=== PATIENT | female | born 1950 | race Caucasian/White ===

== ENCOUNTER 2020-01-07 05:41 | Day surgery (SDC) | payer MEDICARE, OTHER ==
--- NOTE | 2019-12-24 13:28 | HP ---
CC: Dr. Medrano * PREOPERATIVE HISTORY AND PHYSICAL: DATE OF ADMISSION/SURGERY: 01/07/20 DATE OF PREOPERATIVE HISTORY AND PHYSICAL: 12/24/19 This patient is scheduled for same-day surgery admission by Dr. Mix on Sunday , 01/07/20. ATTENDING SURGEON: Dr. Deni Mix * (dictated by Jessica Lane NP) CHIEF COMPLAINT: Anal lesion. HISTORY OF PRESENT ILLNESS: The patient is a 69-year-old female who presented to [facility] self-referred for lesions on her buttock and anus. She has history of similar lesions in 2016, biopsied and consistent with AIN-3. Dr. Mix examined the patient and did a biopsy of one of the lesions and the pathology was consistent again with AIN-3. Dr. Mix discussed options of referral to a specialist for this purpose in [place] or [place], but the patient states she is unable to make the trips. For this reason, Dr. Mix discussed the alternative of anal exam under anesthesia with excision of the lesions and further followup with the pathology. Dr. Mix described the nature of the surgical procedure, the rationale for the procedure, the relevant risks and benefits and today I reviewed the typical postoperative care and recovery. The patient has had a chance to ask questions and stated that she understands the information and is satisfied with the answers given to her questions. She will sign surgical consent on the day of surgery. PAST MEDICAL HISTORY: Significant for bipolar disorder, chronic neck pain, panic disorder. She is followed for primary care by Dr. Medrano who has cleared her to proceed with the recommended surgery. PAST SURGICAL HISTORY: Resection of cerebellar meningioma [address] Cotto; breast reduction in 1999; total hysterectomy secondary to PID. MEDICATIONS: 1. Lamotrigine 25 mg p.o. t.i.d. 2. Triamterene/hydrochlorothiazide 37.5/25 mg 2 tablets daily. 3. Clonazepam 0.5 mg take one half to one tablet t.i.d., p.r.n. anxiety and sleep. 4. Quetiapine 25 mg 2 tabs daily. 5. Estradiol 1 mg p.o. daily. 6. Meclizine 25 mg 1 tablet t.i.d. p.r.n. vertigo. 7. Morphine sulfate 15 mg 1 tablet b.i.d. 8. Oxycodone 10 mg 1 tablet 4 times a day. ALLERGIES: Unspecified antibiotic many years ago caused itching; HYDROCODONE causes GI upset; FLUCONAZOLE caused some type of unspecified reaction and FLUOXETINE caused nausea. FAMILY HISTORY: Father with history of peritonitis. He when the patient was 5-year-old. Mother with a history of metastatic breast cancer diagnosed in her early 50s. No known anesthesia complications, bleeding tendencies, or clotting disorders in the family. SOCIAL HISTORY: She is and her accompanied her to the visit today and was very supportive. She is a nonsmoker, occasionally drinks alcohol and is a former drug user, but denies ever using IV drugs. REVIEW OF SYSTEMS: Constitutional: No fevers, chills, excessive fatigue, or weight loss. General: No previous anesthesia complications, no bleeding tendencies or blood transfusions. No history of deep vein thrombosis or pulmonary embolism. EENMT: No significant visual difficulties or hearing problems. No sore throat, no sinus drainage. Endocrine: No diabetes or thyroid disease. Respiratory: No dyspnea on exertion. No chronic cough. Cardiovascular: No anginal chest pain, palpitations, or chest pressure. Gastrointestinal: No nausea, vomiting, diarrhea, GI bleeding; she does suffer from constipation due to being on chronic opioids. Genitourinary: No dysuria. Musculoskeletal: Chronic neck pain status post cerebellar meningioma resection. Integumentary: No chronic rashes or skin changes. Neurologic: No headache or blurred vision. She does suffer from vertigo. Psychiatric: No insomnia reported. She does have a history of bipolar disorder and panic disorder, but today was very calm and cooperative. PHYSICAL EXAMINATION GENERAL SURVEY: The patient is a 69-year-old female, well developed, well nourished, in no acute distress. VITAL SIGNS: Height 66 inches, weight 205 pounds, body mass index 33.1. Blood pressure 148/90, pulse 76 and regular, respiratory rate 18, temperature 98.8 tympanic. HEENT: Benign. NECK: No cervical lymphadenopathy. BACK: No CVA tenderness. LUNGS: Breath sounds bilaterally clear and equal. HEART: Regular rate and rhythm. No murmurs or rubs appreciated. ABDOMEN: Active bowel sounds, soft, nondistended, nontender throughout. No obvious masses, organomegaly, or evidence of ventral hernia. PELVIC: Deferred. Anal exam done by Dr. Mix. Focused examination of the anal area revealed a 2 x 3 cm wart-like structure that is flat and intact. No drainage. Nontender. There are also hyperpigmented lesions in the perineum. EXTREMITIES: Warm without edema or skin ulceration. NEUROLOGIC: Alert and oriented x3. Steady gait. SKIN: Warm, dry, and intact. 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 PLAN: Same-day surgery admission to Dr. Mix's service on 01/07/20 for anal exam under anesthesia and excision of Campa's disease. JESSICA LANE, NURSES DIRECTOR [id number]/[facility] #: [id number] JIGNESH
[~2020-01-07 05:41] MED LIST: Buffered Lidocaine 1% SYRIN* 1 ML/SYRINGE INTRADERM ONE
[2020-01-07] MEDS ORDERED: Famotidine IV* 10 MG/ML 2 ML (20 mg) IV ONE (06:00)
[2020-01-07] MEDS ORDERED: Lactated Ringers 1000 ML Bag* 1,000 ML IV SCH (06:00)
[2020-01-07] MEDS ORDERED: Buffered Lidocaine 1% SYRIN* 1 ML/SYRINGE INTRADERM ONE (06:20)
[2020-01-07] MEDS ORDERED: Famotidine IV* 10 MG/ML 2 ML (20 mg) ONE (06:21)
[2020-01-07] MEDS ORDERED: ceFOXitin 2 GM IVPREMIX* 2 GM/50 ML BAG ONE (06:21)
[2020-01-07] MEDS ORDERED: Succinylcholine* 20 MG/ML 10 ML VIAL ONE (07:09)
[2020-01-07] MEDS ORDERED: Dexamethasone IV* 4 MG/ML 1 ML (4 MG) ONE (07:09)
[2020-01-07] MEDS ORDERED: fentaNYL* 50 MCG/ML 2 ML VIAL (100 MCG VIAL) ONE (07:09)
[2020-01-07] MEDS ORDERED: Midazolam* 1 MG/ML 5 ML VIAL (5 MG) ONE ×2 (07:09→07:39)
[2020-01-07] MEDS ORDERED: Propofol* 10 MG/ML 20 ML BTL ONE ×2 (07:09→07:56)
[2020-01-07] MEDS ORDERED: Lidocaine 2% PF * 5 ML VIAL ONE (07:09)
[2020-01-07] MEDS ORDERED: Ondansetron INJ* 2 MG/ML VIAL ONE (07:09)
[2020-01-07] MEDS ORDERED: Bupivacaine 0.5% W/EPI SDV* 30 ML VIAL ONE (07:28)
[2020-01-07] MEDS ORDERED: Gelfoam Sponge SIZE 100* SPONGE ONE (07:29)
[2020-01-07] MEDS ORDERED: Bupivacaine 0.25% SDV* 30 ML ONE (07:29)
[2020-01-07] MEDS ORDERED: KETAMINE HCL* 50 MG/ML 10 ML VIAL ONE (07:39)
[2020-01-07] MEDS ORDERED: Ketorolac INJ* 30 MG/ML 1 ML VIAL ONE (07:54)
[2020-01-07] MEDS ORDERED: Bupivacaine 0.25% EPI 200,000* 30 ML SDV ONE (07:55)
[2020-01-07] MEDS ORDERED: Naloxone* 0.4 MG/ML 1 ML VIAL IV PRN (08:10)
[2020-01-07] MEDS ORDERED: fentaNYL* 50 MCG/ML 2 ML VIAL (100 MCG VIAL) IV PRN (08:10)
[2020-01-07] MEDS ORDERED: Ondansetron INJ* 2 MG/ML VIAL IV PRN (08:10)
--- NOTE | 2020-01-07 08:36 | OP ---
Operative Report - Blank - Operative Report Date of Operation: 01/07/20 Note: Pre-OP Diagnoses: AIN-3 Post-op Diagnosis: same Procedure: exam under anesthesia, excision of L perianal lesion, biopsy of R buttock lesion Surgeon: Dominguez Asst: none Anethesia: local MAC Dr Maza EBL: minimal IVF: minimal Specimen: 1. L perianal lesion 2. R buttock lesion Drains: none Complications: None
[2020-01-07 09:26] VITALS: BP 150/89
--- NOTE | 2020-01-07 22:39 | OP ---
CC: Primary care doctor; [facility].* DATE OF OPERATION: 01/07/20 - SDS DATE OF : 50 SURGEON: Manish Mix MD. CASTING MACHINE ADJUSTER: None. ANESTHESIOLOGIST: Dr. Maza. ANESTHESIA: Local MAC. PRE-OP DIAGNOSIS: Anal intraepithelial neoplasm class III. POST-OP DIAGNOSIS: Anal intraepithelial neoplasm class III. OPERATIVE PROCEDURE: Exam under anesthesia, excisional biopsy of left perianal lesion, and punch biopsy of a right buttock lesion. ESTIMATED BLOOD LOSS: Minimal. FLUIDS: Minimal crystalloid fluid given. SPECIMENS: 1. Left perianal lesion. 2. Right buttock lesion. DESCRIPTION OF PROCEDURE: The patient identified in the preoperative area. I discussed the case with her and her and the consent was signed. She was taken to the operating room and placed on the operating room table in the supine position. General anesthesia was given, preoperative antibiotics were given. Sequential devices were placed on bilateral lower extremities. The patient was placed in stirrups and the perianal area was addressed again. There was the known 1.5 x 1.5 lesion in the left perianal area, and the patient was prepped and draped in standard surgical fashion and a time-out was performed. Exam in the anus, there was no evidence of additional lesions that were obvious. Digital rectal exam unremarkable. After injection of lidocaine along the proposed excision site, I made an elliptical incision around the lesion, again measured 1.5 x 1.5 cm. Once this was removed, we marked the lesion placing a short suture at the superior aspect of what we were visualizing which indeed was anterior and a long suture on the lateral aspect. This was sent down for pathology. The defect was measured about 4 cm by just over 1.5 cm. A flap was made laterally, hemostasis achieved , and I reapproximated skin with interrupted 3-0 nylon sutures in a mattress fashion. A second scalpel was used to do a punch biopsy on a stuck-on right buttock lesion that was pigmented and dissimilar from the initial lesion. This biopsy was taken and passed off as specimen, and cautery was used for hemostasis at this site. Xeroform followed by gauze was applied to the excision biopsy site and the patient was woken up and transferred to the PACU in stable condition. [id number]/[facility] #: [id number] [facility]
== END 2020-01-07 09:20 | disposition home or self-care (01) ==
LOC: OR 05:41
PROVIDERS: ATTEND Surgery
DX: D01.3 Carcinoma in situ of anus and anal canal (principal); C20 Malignant neoplasm of rectum; L82.0 Inflamed seborrheic keratosis; F31.81 Bipolar II disorder; M54.2 Cervicalgia; F41.1 Generalized anxiety disorder; R60.0 Localized edema; E78.5 Hyperlipidemia, unspecified; L40.9 Psoriasis, unspecified; F41.0 Panic disorder [episodic paroxysmal anxiety]; Z87.891 Personal history of nicotine dependence; Z88.5 Allergy status to narcotic agent; Z88.8 Allergy status to other drugs, medicaments and biological substances
CPT/HCPCS: 88305; J0330; J0694; J1100; J1885; J2250; J2405; J2704; J3010; J3490

== ENCOUNTER 2024-09-29 10:24 | Inpatient (IN) ==
[2024-09-29 12:41] LABS: ABS Basophils 0.1 10^3/uL (0.0-0.1); ABS Lymphocytes 1.7 10^3/uL (1.0-4.8); ABS Monocytes 1.5 10^3/uL (0.0-0.9); ABS Neutrophils 10.9 10^3/uL (1.5-7.6); ABS Nucleated RBC 0.01 10^3/ul; Eosinophil % 0.3 %; Hematocrit 45.2 % (35-45); Hemoglobin 15.9 g/dL (11.5-14.3); Lymphocyte % 11.8 %; Mean Corpuscular Hemoglobin 30.8 pg (27-33); Mean Corpuscular Hgb Conc 35.1 g/dL (31-36); Mean Corpuscular Volume 87.7 fL (80-97); Mean Platelet Volume 8.8 fL (7.5-11.2); Nucleated Red Blood Cells % 0.1 %/100WBC (0.0-0.8); Platelet Count 180 10^3/uL (150-450); Red Blood Count 5.15 10^6/uL (3.63-4.92); Red Cell Distribution Width 14.8 % (12-17); White Blood Count 14.3 10^3/uL (3.8-11.8)
[2024-09-29] MEDS: Dexamethasone IV 4 MG/ML VIAL 1 ml VIAL IV SLOW PU ONE (12:54)
[2024-09-29 13:33] LABS: Albumin/Globulin Ratio 1.4 (1-3); Calcium 9.9 mg/dL (8.6-10.3); Creatinine, Serum 1.23 mg/dL (0.51-0.95); Globulin 2.8 g/dL (2-4); Potassium 3.3 mmol/L (3.5-5.0); Total Protein 6.8 g/dL (6.4-8.9); eGFR CKD-EPI 46.4 (>60)
[2024-09-29 16:16] LABS: HDL Cholesterol 79.6 mg/dL
[2024-09-29] MEDS ORDERED: Naloxone Nasal Spray 4 MG/0.1 ML NASAL.SPR INTRANASAL PRN (17:22)
[2024-09-29] MEDS: Morphine ER 15 mg TAB ** extended release PO SCH (20:35)
[2024-09-29] MEDS: Potassium Chlor 20 meq TAB.ER PO ONE (20:36)
[2024-09-29] MEDS: Enoxaparin 40 MG/0.4 ML SYR SUBCUT SCH (20:37)
[2024-09-30 06:58] LABS: ABS Neutrophils 8.4 10^3/uL (1.5-7.6); ABS Nucleated RBC 0.01 10^3/ul; Eosinophil % 0.1 %; Hematocrit 45.3 % (35-45); Hemoglobin 15.7 g/dL (11.5-14.3); Lymphocyte % 17.8 %; Mean Corpuscular Hemoglobin 30.4 pg (27-33); Mean Corpuscular Hgb Conc 34.6 g/dL (31-36); Mean Platelet Volume 9.1 fL (7.5-11.2); Nucleated Red Blood Cells % 0.1 %/100WBC (0.0-0.8); Platelet Count 205 10^3/uL (150-450); Red Blood Count 5.15 10^6/uL (3.63-4.92); Red Cell Distribution Width 15.3 % (12-17); White Blood Count 11.4 10^3/uL (3.8-11.8)
[2024-09-30 07:46] LABS: Anion Gap 15 mmol/L (2-16); Blood Urea Nitrogen 27 mg/dL (6-24); CO2 Carbon Dioxide 20 mmol/L (22-32); Chloride 99 mmol/L (101-111); Creatinine, Serum 1.26 mg/dL (0.51-0.95); Glucose 108 mg/dL (70-100); Magnesium 2.1 mg/dL (1.9-2.7); Sodium 134 mmol/L (135-145); eGFR CKD-EPI 45.1 (>60)
[2024-09-30] MEDS: Morphine ER 30 mg TAB ** extended release PO SCH (09:48)
[2024-09-30 10:31] LABS: Potassium, Whole Blood 3.6 mmol/L (3.4-4.5)
[2024-10-01 06:53] LABS: ABS Basophils 0.1 10^3/uL (0.0-0.1); ABS Eosinophils 0.1 10^3/uL (0.0-0.5); ABS Lymphocytes 3.5 10^3/uL (1.0-4.8); ABS Neutrophils 6.7 10^3/uL (1.5-7.6); ABS Nucleated RBC 0.02 10^3/ul; Eosinophil % 0.8 %; Hematocrit 44.8 % (35-45); Hemoglobin 15.6 g/dL (11.5-14.3); Lymphocyte % 30.8 %; Mean Corpuscular Hemoglobin 30.7 pg (27-33); Mean Corpuscular Hgb Conc 34.7 g/dL (31-36); Mean Corpuscular Volume 88.4 fL (80-97); Mean Platelet Volume 8.4 fL (7.5-11.2); Nucleated Red Blood Cells % 0.1 %/100WBC (0.0-0.8); Platelet Count 202 10^3/uL (150-450); Red Blood Count 5.07 10^6/uL (3.63-4.92); White Blood Count 11.3 10^3/uL (3.8-11.8)
[2024-10-01 07:33] LABS: Calcium 9.8 mg/dL (8.6-10.3); Creatinine, Serum 1.32 mg/dL (0.51-0.95); Phosphorus 4.1 mg/dL (2.5-5.0); Potassium 3.3 mmol/L (3.5-5.0); eGFR CKD-EPI 42.6 (>60)
[2024-10-01] MEDS: Heparin 5000 UNITS/ML 1 mL VIAL IV SCH (17:52)
[2024-10-01] MEDS: Heparin DRIP 25,000 UNITS BAG 25,000 UNITS/250 ML BAG IV SCH (17:53)
[2024-10-01 18:20] LABS: ABS Monocytes 0.3 10^3/uL (0.0-0.9); ABS Neutrophils 11.5 10^3/uL (1.5-7.6); ABS Nucleated RBC 0.01 10^3/ul; Eosinophil % 0.1 %; Hematocrit 42.6 % (35-45); Hemoglobin 14.6 g/dL (11.5-14.3); Lymphocyte % 7.6 %; Mean Corpuscular Hemoglobin 30.1 pg (27-33); Mean Corpuscular Hgb Conc 34.3 g/dL (31-36); Mean Corpuscular Volume 87.5 fL (80-97); Mean Platelet Volume 8.6 fL (7.5-11.2); Platelet Count 217 10^3/uL (150-450); Red Blood Count 4.87 10^6/uL (3.63-4.92); Red Cell Distribution Width 15.2 % (12-17); White Blood Count 12.8 10^3/uL (3.8-11.8)
[2024-10-01 19:33] LABS: Creatinine, Serum 1.27 mg/dL (0.51-0.95); eGFR CKD-EPI 44.7 (>60)
[2024-10-01] MEDS: Gadoteridol (CONTRAST) 279.3 MG/ML 10 ML IV ONE (23:03)
[2024-10-01] MEDS: Iodixanol 320 (CONTRAST) 100 ML SDV IV ONE (23:04)
[2024-10-02 06:19] LABS: ABS Lymphocytes 1.3 10^3/uL (1.0-4.8); ABS Monocytes 0.4 10^3/uL (0.0-0.9); ABS Neutrophils 7.9 10^3/uL (1.5-7.6); ABS Nucleated RBC 0.02 10^3/ul; Hematocrit 41.1 % (35-45); Hemoglobin 14.5 g/dL (11.5-14.3); Lymphocyte % 13.4 %; Mean Corpuscular Hemoglobin 30.9 pg (27-33); Mean Corpuscular Hgb Conc 35.4 g/dL (31-36); Mean Corpuscular Volume 87.4 fL (80-97); Mean Platelet Volume 8.7 fL (7.5-11.2); Nucleated Red Blood Cells % 0.2 %/100WBC (0.0-0.8); Platelet Count 230 10^3/uL (150-450); Red Cell Distribution Width 14.5 % (12-17); White Blood Count 9.5 10^3/uL (3.8-11.8)
[2024-10-02 06:34] LABS: Calcium 9.8 mg/dL (8.6-10.3); Creatinine, Serum 1.03 mg/dL (0.51-0.95); Magnesium 1.9 mg/dL (1.9-2.7); Phosphorus 3.4 mg/dL (2.5-5.0); Potassium 3.7 mmol/L (3.5-5.0); eGFR CKD-EPI 57.4 (>60)
[2024-10-02] MEDS ORDERED: Sulfur Hexaflouride MICROSPHR 25 MG VIAL IV PRN (13:54)
[2024-10-02 15:56] LABS: High Sensitivity Troponin 1 Hr 49 pg/mL (<15)
[2024-10-02 17:49] LABS: High Sensitivity Troponin 3 Hr 47 pg/mL (<15)
[2024-10-03 06:24] LABS: ABS Lymphocytes 1.4 10^3/uL (1.0-4.8); ABS Monocytes 0.7 10^3/uL (0.0-0.9); ABS Neutrophils 12.2 10^3/uL (1.5-7.6); Hematocrit 38.4 % (35-45); Hemoglobin 13.3 g/dL (11.5-14.3); Lymphocyte % 9.9 %; Mean Corpuscular Hemoglobin 30.1 pg (27-33); Mean Corpuscular Hgb Conc 34.8 g/dL (31-36); Mean Corpuscular Volume 86.6 fL (80-97); Mean Platelet Volume 8.4 fL (7.5-11.2); Platelet Count 234 10^3/uL (150-450); Red Blood Count 4.43 10^6/uL (3.63-4.92); Red Cell Distribution Width 14.8 % (12-17); White Blood Count 14.4 10^3/uL (3.8-11.8)
[2024-10-03 07:27] LABS: Calcium 9.6 mg/dL (8.6-10.3); Creatinine, Serum 1.09 mg/dL (0.51-0.95); Potassium 3.6 mmol/L (3.5-5.0); eGFR CKD-EPI 53.6 (>60)
[2024-10-03 07:28] LABS: Phosphorus 3.5 mg/dL (2.5-5.0)
[2024-10-03] MEDS: Enoxaparin 80 MG/0.8 ML SYR SUBCUT SCH (22:45)
[2024-10-04 05:53] LABS: ABS Lymphocytes 1.4 10^3/uL (1.0-4.8); ABS Monocytes 0.6 10^3/uL (0.0-0.9); ABS Neutrophils 11.6 10^3/uL (1.5-7.6); ABS Nucleated RBC 0.01 10^3/ul; Hematocrit 38.2 % (35-45); Hemoglobin 13.1 g/dL (11.5-14.3); Lymphocyte % 10.5 %; Mean Corpuscular Hemoglobin 29.8 pg (27-33); Mean Corpuscular Hgb Conc 34.2 g/dL (31-36); Mean Platelet Volume 8.5 fL (7.5-11.2); Nucleated Red Blood Cells % 0.1 %/100WBC (0.0-0.8); Platelet Count 233 10^3/uL (150-450); Red Blood Count 4.39 10^6/uL (3.63-4.92); Red Cell Distribution Width 14.7 % (12-17); White Blood Count 13.6 10^3/uL (3.8-11.8)
[2024-10-04 06:39] LABS: Calcium 9.6 mg/dL (8.6-10.3); Creatinine, Serum 1.07 mg/dL (0.51-0.95); Phosphorus 3.3 mg/dL (2.5-5.0); Potassium 3.9 mmol/L (3.5-5.0); eGFR CKD-EPI 54.8 (>60)
[2024-10-05 06:23] LABS: ABS Lymphocytes 1.5 10^3/uL (1.0-4.8); ABS Monocytes 0.5 10^3/uL (0.0-0.9); ABS Neutrophils 10.6 10^3/uL (1.5-7.6); ABS Nucleated RBC 0.01 10^3/ul; Hematocrit 36.4 % (35-45); Hemoglobin 12.9 g/dL (11.5-14.3); Lymphocyte % 11.7 %; Mean Corpuscular Hemoglobin 30.8 pg (27-33); Mean Corpuscular Hgb Conc 35.4 g/dL (31-36); Mean Corpuscular Volume 86.9 fL (80-97); Mean Platelet Volume 8.4 fL (7.5-11.2); Nucleated Red Blood Cells % 0.1 %/100WBC (0.0-0.8); Platelet Count 215 10^3/uL (150-450); Red Blood Count 4.18 10^6/uL (3.63-4.92); Red Cell Distribution Width 14.6 % (12-17); White Blood Count 12.6 10^3/uL (3.8-11.8)
[2024-10-05 06:47] LABS: Creatinine, Serum 1.04 mg/dL (0.51-0.95); eGFR CKD-EPI 56.8 (>60)
[2024-10-06] MEDS: Lactated Ringers 1000 ml BAG 1,000 ML IV SCH (05:58)
[2024-10-06] MEDS: Buffered Lidocaine 1% SYRIN 1 ml INTRADERM ONE (13:38)
[2024-10-06] MEDS ORDERED: Ondansetron 4 mg VIAL 2 MG/ML 2 ml VIAL IV PRN (14:34)
[2024-10-06] MEDS ORDERED: fentaNYL 100 mcg/2 ml 50 MCG/ML VIAL IV PRN (14:34)
[2024-10-06] MEDS ORDERED: Naloxone 0.4 mg VIAL 0.4 mg/ml 1 ml VIAL IV PRN (14:34)
[2024-10-06] MEDS: Morphine ER 15 mg TAB ** extended release PO SCH (20:22)
[2024-10-06] MEDS: Enoxaparin 80 MG/0.8 ML SYR SUBCUT SCH (20:22)
[2024-10-07 06:11] LABS: Creatinine, Serum 0.96 mg/dL (0.51-0.95); eGFR CKD-EPI 62.5 (>60)
[2024-10-07] MEDS: Morphine ER 30 mg TAB ** extended release PO SCH (09:22)
[2024-10-07 10:09] VITALS: BP 104/71
[2024-10-20 17:03] LABS: FLCA Specimen ID CN24-1720-1
== END 2024-10-07 14:34 | disposition home health service (06) | DRG 54 ==
LOC: EDHOLD 10:24 → ED 10:24 → MEDTELE 20:24 → SUATTDRO 22:00
PROVIDERS: ADMIT Student in an Organized Health Care Education/Training Program; ATTEND Internal Medicine

== ENCOUNTER 2024-12-06 20:06 | Inpatient (IN) ==
[2024-12-06 21:22] LABS: ABS Lymphocytes 0.9 10^3/uL (1.0-4.8); ABS Monocytes 0.1 10^3/uL (0.0-0.9); ABS Neutrophils 3.9 10^3/uL (1.5-7.6); ABS Nucleated RBC 0.01 10^3/ul; Eosinophil % 0.5 %; Hematocrit 35.7 % (35-45); Hemoglobin 12.5 g/dL (11.5-14.3); Lymphocyte % 18.5 %; Mean Corpuscular Hemoglobin 31.3 pg (27-33); Mean Corpuscular Volume 89.2 fL (80-97); Mean Platelet Volume 7.1 fL (7.5-11.2); Nucleated Red Blood Cells % 0.2 %/100WBC (0.0-0.8); Platelet Count 257 10^3/uL (150-450); Red Cell Distribution Width 17.7 % (12-17); White Blood Count 4.9 10^3/uL (3.8-11.8)
[2024-12-06 22:07] LABS: Albumin 3.4 g/dL (3.5-5.7); Albumin/Globulin Ratio 1.5 (1-3); C Reactive Protein 86.82 mg/L (<8.01); Calcium 7.9 mg/dL (8.6-10.3); Creatinine, Serum 0.89 mg/dL (0.51-0.95); Globulin 2.2 g/dL (2-4); Magnesium 1.9 mg/dL (1.9-2.7); Potassium 2.8 mmol/L (3.5-5.0); Total Bilirubin 1.1 mg/dL (0.2-1.0); Total Protein 5.6 g/dL (6.4-8.9)
[2024-12-06 22:21] LABS: TSH Ultra Thyroid Stim Horm 1.02 mcIU/mL (0.34-5.60)
[2024-12-06 22:48] LABS: High Sensitivity Troponin 1 Hr 12 pg/mL (<15)
[2024-12-06] MEDS: NS 0.9% 1000 ml BAG 1,000 ML IV SCH (23:49)
[2024-12-06] MEDS: KCL 20 MEQ/100 ML IVPREMIX 20 MEQ/100 ML BAG IV ONE (23:49)
[2024-12-07] MEDS: Potassium Chloride LIQUID 20 MEQ/15 ML LIQUID PO ONE (02:07)
[2024-12-07 06:19] LABS: Urine Appearance Turbid; Urine Bilirubin Negative (Negative); Urine Blood Negative (Negative); Urine Color Yellow; Urine Glucose Negative (Negative); Urine Ketones Negative (Negative); Urine Nitrite Negative (Negative); Urine Protein Trace (Negative); Urine Specific Gravity 1.016 (1.002-1.030); Urine Urobilinogen 1+ (Negative)
[2024-12-07 07:17] LABS: Potassium 3.4 mmol/L (3.5-5.0)
[2024-12-07] MEDS: NS 0.9% 1000 ml BAG 1,000 ML IV ONE (08:05)
[2024-12-07] MEDS ORDERED: Oxycodone IR 10 mg TAB (NF) PO ONE (09:00)
[2024-12-07] MEDS: oxyCODONE SR 10 mg TAB PO ONE (09:18)
[2024-12-07] MEDS: Iohexol 350 (CONTRAST) 500 ML MDV IV ONE (09:56)
[2024-12-07] MEDS: Lactated Ringers 1000 ml BAG 1,000 ML IV ONE (11:05)
[2024-12-07] MEDS: Norepinephrine 32MCG/ML D5WBAG 8,000 MCG/250 ML BAG IV SCH (11:11)
[2024-12-07] MEDS: Magnesium Sulfate 2 gm BAG 2 GM/50 ML BAG IVPB ONE (13:47)
[2024-12-07 14:43] LABS: Anion Gap 7 mmol/L (2-16); Blood Urea Nitrogen 11 mg/dL (6-24); CO2 Carbon Dioxide 21 mmol/L (22-32); Calcium 6.8 mg/dL (8.6-10.3); Chloride 109 mmol/L (101-111); Creatinine, Serum 0.64 mg/dL (0.51-0.95); Glucose 96 mg/dL (70-100); Magnesium 1.6 mg/dL (1.9-2.7); Sodium 137 mmol/L (135-145); eGFR CKD-EPI 92.7 (>60)
[2024-12-07] MEDS: cefTRIAXone 1 gm/50 mL D5W 1 GM/50 ML BAG IV SCH (16:36)
[2024-12-07] MEDS: cefTRIAXone 2 gm/50 mL D5W 2 GM/50 ML BAG IV SCH (16:40)
[2024-12-07] MEDS: Magnesium Sulfate IV 1GM/100ML 1 GM/100 ML BAG IV ONE (16:40)
[2024-12-07 16:52] LABS: Phosphorus 1.8 mg/dL (2.5-5.0); Potassium 3.3 mmol/L (3.5-5.0)
[2024-12-07] MEDS: Azithromycin 500 mg/250 ml NS 500 MG/250 ML BAG IVPB SCH (17:17)
[2024-12-07] MEDS: KCL 20 MEQ/100 ML IVPREMIX 20 MEQ/100 ML BAG IV SCH (17:24)
[2024-12-07] MEDS: Potassium Phosphate IV 30 MMOL in NS 0.9% 250 ml 250 ML IVPB ONE (19:22)
[2024-12-07] MEDS: Potassium & Sodium Phos 250 mg = 1 PACKET PO SCH (22:34)
[2024-12-08] MEDS: Potassium Phosphate IV 30 MMOL in NS 0.9% 250 ml 250 ML IVPB ONE (02:25)
[2024-12-08] MEDS: Potassium Chloride LIQUID 20 MEQ/15 ML LIQUID PO ONE (03:06)
[2024-12-08 05:44] LABS: ABS Eosinophils 0.1 10^3/uL (0.0-0.5); ABS Lymphocytes 0.9 10^3/uL (1.0-4.8); ABS Neutrophils 5.4 10^3/uL (1.5-7.6); Eosinophil % 0.8 %; Hematocrit 34.4 % (35-45); Hemoglobin 12.1 g/dL (11.5-14.3); Mean Corpuscular Hemoglobin 31.4 pg (27-33); Mean Corpuscular Hgb Conc 35.1 g/dL (31-36); Mean Corpuscular Volume 89.3 fL (80-97); Mean Platelet Volume 7.1 fL (7.5-11.2); Nucleated Red Blood Cells % 0.1 %/100WBC (0.0-0.8); Platelet Count 255 10^3/uL (150-450); Red Blood Count 3.86 10^6/uL (3.63-4.92); Red Cell Distribution Width 17.6 % (12-17); White Blood Count 6.4 10^3/uL (3.8-11.8)
[2024-12-08 06:10] LABS: Creatinine, Serum 0.7 mg/dL (0.51-0.95); Magnesium 2.1 mg/dL (1.9-2.7); Potassium 3.8 mmol/L (3.5-5.0); eGFR CKD-EPI 90.7 (>60)
[2024-12-08] MEDS: Ondansetron 4 mg VIAL 2 MG/ML 2 ml VIAL IV PRN (08:16)
[2024-12-08] MEDS: Sulfur Hexaflouride MICROSPHR 25 MG VIAL IV PRN (09:06)
[2024-12-08] MEDS: Iohexol 350 (CONTRAST) 500 ML MDV IV ONE (22:57)
[2024-12-09 05:52] LABS: ABS Eosinophils 0.1 10^3/uL (0.0-0.5); ABS Neutrophils 4.8 10^3/uL (1.5-7.6); ABS Nucleated RBC 0.01 10^3/ul; Eosinophil % 1.1 %; Hematocrit 31.2 % (35-45); Hemoglobin 11.2 g/dL (11.5-14.3); Lymphocyte % 17.3 %; Mean Corpuscular Hgb Conc 35.9 g/dL (31-36); Mean Corpuscular Volume 89.2 fL (80-97); Mean Platelet Volume 7.5 fL (7.5-11.2); Nucleated Red Blood Cells % 0.1 %/100WBC (0.0-0.8); Platelet Count 251 10^3/uL (150-450); Red Cell Distribution Width 17.6 % (12-17); White Blood Count 5.9 10^3/uL (3.8-11.8)
[2024-12-09 06:21] LABS: Calcium 6.7 mg/dL (8.6-10.3); Creatinine, Serum 0.75 mg/dL (0.51-0.95); Magnesium 1.7 mg/dL (1.9-2.7); Phosphorus 1.6 mg/dL (2.5-5.0); Potassium 3.3 mmol/L (3.5-5.0); eGFR CKD-EPI 83.5 (>60)
[2024-12-09] MEDS: Potassium Chlor 20 meq TAB.ER PO ONE ×2 (10:06→10:25)
[2024-12-09] MEDS: Magnesium Sulfate 2 gm BAG 2 GM/50 ML BAG IVPB ONE (10:06)
[2024-12-09] MEDS: Potassium Phosphate IV 10 MMOL in NS 0.9% 250 ml 250 ML IVPB ONE (11:50)
[2024-12-09] MEDS: Morphine 2 MG/ML SYRINGE IV PRN (23:37)
[2024-12-10] MEDS: Prochlorperazine 5 mg/ml 2 ml VIAL (10 mg) IV PRN (04:41)
[2024-12-10 05:49] LABS: ABS Eosinophils 0.1 10^3/uL (0.0-0.5); ABS Lymphocytes 0.8 10^3/uL (1.0-4.8); ABS Neutrophils 2.4 10^3/uL (1.5-7.6); Eosinophil % 1.7 %; Hematocrit 30.1 % (35-45); Hemoglobin 10.7 g/dL (11.5-14.3); Lymphocyte % 23.2 %; Mean Corpuscular Hemoglobin 31.8 pg (27-33); Mean Corpuscular Hgb Conc 35.7 g/dL (31-36); Mean Corpuscular Volume 89.3 fL (80-97); Mean Platelet Volume 7.1 fL (7.5-11.2); Nucleated Red Blood Cells % 0.1 %/100WBC (0.0-0.8); Platelet Count 220 10^3/uL (150-450); Red Blood Count 3.37 10^6/uL (3.63-4.92); Red Cell Distribution Width 17.7 % (12-17); White Blood Count 3.3 10^3/uL (3.8-11.8)
[2024-12-10 06:15] LABS: Calcium 6.6 mg/dL (8.6-10.3); Creatinine, Serum 0.67 mg/dL (0.51-0.95); Magnesium 1.8 mg/dL (1.9-2.7); Phosphorus 1.6 mg/dL (2.5-5.0); Potassium 3.3 mmol/L (3.5-5.0); eGFR CKD-EPI 91.7 (>60)
[2024-12-10] MEDS: Potassium Chlor 20 meq TAB.ER PO ONE (11:23)
[2024-12-10] MEDS: Magnesium Sulfate 2 gm BAG 2 GM/50 ML BAG IVPB ONE (11:23)
[2024-12-10 13:25] VITALS: BP 98/76
[2024-12-10] MEDS: Potassium Phosphate IV 15 MMOL in NS 0.9% 250 ml 250 ML IVPB ONE (14:01)
[2024-12-11 23:32] LABS: Anaplasma phagocytophilum Negative (Negative); B. miyamotoi PCR, B Negative (Negative); Babesia divergens/MO-1 Negative (Negative); Babesia ducani Negative (Negative); Ehrlichia chaffeensis Negative (Negative); Ehrlichia ewingii/canis Negative (Negative); Ehrlichia muris eauclairensis Negative (Negative)
== END 2024-12-10 15:50 | disposition home health service (06) | DRG 309 ==
LOC: ED 20:06 → EDHOLD 12-07 13:19 → SUATTDRO 12-07 13:19 → MEDTELE 12-07 20:09
PROVIDERS: ADMIT Student in an Organized Health Care Education/Training Program; ATTEND Internal Medicine